=== PATIENT | male | born 1980 | race Caucasian/White ===

== ENCOUNTER 2022-09-14 09:45 | Outpatient (CLI) | payer OTHER, SELFPAY | END 2022-09-14 09:46 | disposition home or self-care (01) | LOC: LKVREF 09-15 10:22 | PROVIDERS: PCP Emergency Medicine; Visit Provider Emergency Medicine | DX: R10.9 Unspecified abdominal pain (principal); R11.10 Vomiting, unspecified; K92.1 Melena; K57.92 Diverticulitis of intestine, part unspecified, without perforation or abscess without bleeding | CPT/HCPCS: 82270 ==

== ENCOUNTER 2023-01-06 09:10 | Outpatient (CLI) | payer OTHER, SELFPAY ==
[2023-01-06 12:43] LABS: Cholesterol* 217 mg/dL (90-199); HDL Cholesterol* 47 mg/dL (>=40); LDL Cholesterol Calculated 159 mg/dL (<100); Triglycerides* 57 mg/dL (40-149)
== END 2023-01-06 09:11 | disposition home or self-care (01) ==
LOC: LKVREF 09:11
PROVIDERS: PCP Emergency Medicine; Visit Provider Family Medicine
DX: Z00.00 Encounter for general adult medical examination without abnormal findings (principal); D64.9 Anemia, unspecified; R13.10 Dysphagia, unspecified; Z13.6 Encounter for screening for cardiovascular disorders
CPT/HCPCS: 80061